=== PATIENT | female | born 1950 | race African-American/Black ===

== ENCOUNTER → 2018-03-16 | Outpatient (CLI) | payer BC, MEDICARE ==
[2014-07-19 00:24] VITALS: BP 141/87
[~2018-03-16] MED LIST: ALBU2.5V8 IH; ESTR1PAT67 TD; GUAI600T47 PO; HYDR-2155 PO; IBUP800T19 PO; LORA10TA3 PO; MULT-223 PO; POTA10CA PO; SIMV10TA3 PO; TRIA1TAB2 PO
--- NOTE | 2018-03-19 12:02 | RAD ---
DATE: 03/16/2018 EXAM: MAMMO GIL SCREENING BILATERAL HISTORY: Routine screening COMPARISON: 07/04/2011 This study was interpreted with the benefit of Computerized Aided Detection (CAD). Breast Density: SCATTERED The breast parenchyma shows scattered fibroglandular densities. Breast parenchyma level B. FINDINGS: 2-D and 3-D tomosynthesis imaging was performed in CC and MLO projections. There are several smooth nodules in both breasts which appear unchanged. No spiculated mass or architectural distortion is evident. Benign type calcifications are present. No suspicious microcalcifications have developed. IMPRESSION: There is no mammographic evidence of malignancy in either breast. BI-RADS CATEGORY: 2 BENIGN FINDING(S) RECOMMENDED FOLLOW-UP: 12M 12 MONTH FOLLOW-UP PQRS compliance statement: Patient information was entered into a reminder system with a target due date for the next mammogram. Mammography is a sensitive method for finding small breast cancers, but it does not detect them all and is not a substitute for careful clinical examination. A negative mammogram does not negate a clinically suspicious finding and should not result in delay in biopsying a clinically suspicious abnormality. "Our facility is accredited by the [employer] Mammography Program."
== END | disposition home or self-care (01) ==
LOC: MAMMO 09:41
PROVIDERS: ATTEND Family Medicine
DX: Z12.31 Encounter for screening mammogram for malignant neoplasm of breast (principal)
CPT/HCPCS: 77063; 77067